=== PATIENT | male | born 1980 | race Caucasian/White ===

== ENCOUNTER 2023-06-16 09:17 | Emergency (ER) | payer BC, SELFPAY ==
[2023-06-16 09:22] VITALS: BP 139/110; PULSE 93; RESP 18; TEMP 36.6; O2SAT 98
--- NOTE | 2023-06-16 09:49 | ED.GENADUL_ITS ---
Discharge Plan Disposition Patient Disposition: Home Condition: Stable Discharge Details Clinical Impression: Facial laceration, Elevated blood pressure reading Primary Care Provider: Allan Johnson ED Provider: Dionte Khoury Home Meds and New Rx's Prescriptions: No Action ibuprofen [Advil Liqui-Gel] 200 MG capsule 400 mg PO PRN PRN Discharge Instructions Instructions: Facial Laceration (ED) Additional Instructions: Please follow-up for suture removal in 7 days. You may wish to follow-up with your PCP or express care or return to the emergency department. Your blood pressure was elevated today. I suspect this is secondary to stress related injury but this should be rechecked. Please be sure to follow-up with your primary care physician and discuss this. Return to the ER immediately for any worsening or new concerning symptoms. Referrals: Allan Johnson [Primary Care Provider] - Discharge Data Discharge Date/Time-TO BE ENTERED AT DEPARTURE: 06/16/23 10:55 Medical Decision Making 43-year-old male here with accidental self-inflicted laceration to the right infraorbital face. Wound was anesthetized, cleansed and repaired with without complication. Bacitracin applied. Tetanus prophylaxis was provided. Patient's blood pressure was elevated today. I suspect this is related to stress. He was informed of this and I advised him to follow-up with his PCP. Usual and customary discharge instructions reviewed the patient. HPI General Mode of arrival: ambulatory . Date/Time Provider Initiated Documentation: 06/16/23 09:31 . Information obtained by: patient . HPI Narrative: 43-year-old male here with laceration to his right infraorbital face. 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 This occurred at 830 this morning. Wound has been bleeding. Related Data Home Medications Medication Instructions Recorded Confirmed ibuprofen 200 mg capsule (Advil 400 mg PO PRN PRN 04/06/17 06/16/23 Liqui-Gel) Allergies Allergy/AdvReac Type Severity Reaction Status Date / Time erythromycin base Allergy Unverified 06/16/23 09:25 [Erythromycin Base] General Stated Complaint: Laceration RUSS: 4 Review of Systems Narrative: See see HPI PFSH All Active Problems Elevated blood pressure reading (Acute) Facial laceration (Acute) Social History Smoking/Tobacco Use Status: Former Tobacco Use Smoking risk assessment performed?: Yes Drug use: Never Substance use type: does not use Do you feel safe in your relationship?: Yes Exam HENWY General nose exam: external nose normal and nares normal Face and sinus: sinuses nontender, no crepitus and laceration (3 cm laceration right infraorbital) Eyes Periorbital: periorbital findings normal Pupils: PERRL EOM: EOM intact bilaterally Course Vital Signs Vital signs: Vital Signs Temperature 36.6 C 06/16/23 09:22 Pulse 93 H 06/16/23 09:22 Respiratory Rate 18 06/16/23 09:22 Blood Pressure 139/110 H 06/16/23 09:22 Pulse Oximetry 98 06/16/23 09:22 Temperature 36.6 C 06/16/23 09:22 Temperature Source Skin 06/16/23 09:22 Pulse 93 H 06/16/23 09:22 Respiratory Rate 18 06/16/23 09:22 Respiratory Effort Normal 06/16/23 09:25 Blood Pressure 139/110 H 06/16/23 09:22 Blood Pressure Position Sitting 06/16/23 09:22 Pulse Oximetry 98 06/16/23 09:22 Oxygen Delivery Method Room Air 06/16/23 09:22 Oxygen Flow Rate 0 06/16/23 09:22 Pain Level 4 06/16/23 09:22 Procedures Laceration Laceration 1: Site: face Side (If applicable): right Size (cm): 2.5 Description: linear Depth: simple, single layer Local Anesthetic: Lidocaine 2% and with Epi Pre-repair: wound explored, irrigated extensively and deep structures intact Skin layer closed with: other (prolene) Size (cm): 6-0 Number of sutures: 4 Technique: simple, interrupted
[2023-06-16] MEDS: Lidocaine/Epinephri/Tetracaine Topical Gel 3 ML TP (10:06)
[2023-06-16 10:52] VITALS: BP 146/111; PULSE 77; RESP 16; O2SAT 99
== END 2023-06-16 10:55 | disposition home or self-care (01) ==
PROVIDERS: Emergency Provider Student in an Organized Health Care Education/Training Program; PCP Family Medicine
DX: S01.21XA Laceration without foreign body of nose, initial encounter (principal); R03.0 Elevated blood-pressure reading, without diagnosis of hypertension; Z23 Encounter for immunization; Z87.891 Personal history of nicotine dependence; W22.8XXA Striking against or struck by other objects, initial encounter; Y93.89 Activity, other specified
CPT/HCPCS: 12011; 90471; 99282

== ENCOUNTER 2023-06-23 13:28 | Emergency (ER) | payer BC, SELFPAY ==
[2023-06-23 13:37] VITALS: BP 154/105; PULSE 82; RESP 18; TEMP 37.1; O2SAT 97
--- NOTE | 2023-06-23 13:52 | ED.GENADUL_ITS ---
Discharge Plan Disposition Patient Disposition: Home Discharge Details Clinical Impression: Visit for suture removal Primary Care Provider: Allan Johnson ED Provider: Nino Tracey Home Meds and New Rx's Prescriptions: No Action ibuprofen [Advil Liqui-Gel] 200 MG capsule 400 mg PO PRN PRN Discharge Instructions Additional Instructions: Verbally discharged Discharge Data Discharge Date/Time-TO BE ENTERED AT DEPARTURE: 06/23/23 14:05 Medical Decision Making This dictation utilizes [id number] dictation software and may contain unedited grammatical errors. 43 y/o M presents to ED today with a chief complaint of suture removal request, had 4 sutures placed 7 days ago- took one out at home. Onset and characteristics include well healing wound without symptoms of infection. Patient has relevant history of noncontributory. Family and social history: noncontibutory. Pertinent exam findings / vital signs include well healed laceraiton with 3 sutures visualized. Differential / pathologies of concern include wound infection. Diagnostic studies of: -none. Interventions of: -suture removal. ED Course: 3 sutures removed without complication, verbally discharged. Findings not consistent with wound infection, sepsis, wound dehiscence. Disposition of Visit for suture removal. Assessment/Plan: Counseled on return for signs of infection- redness, fever, drainage. Patient verbalized understanding of the plan and return to ED criteria and engaged in shared decision making. Medical Records Medical records reviewed: Yes I reviewed the patient's medical records. HPI General Date/Time Provider Initiated Documentation: 06/23/23 13:52 . HPI Narrative: 43 year-old male presents to ED today by POV/ambulating with a chief complaint of suture removal request, sutures to R cheek with onset placed at this ED 7 days ago. Quality described as healing well- he removed one suture at home but couldn't get the other 3, no radiation to fever, redness, purulent drainage. Severity is described as 0/10. Palliating factors include nothing specific. Provoking factors include nothing specific. Patient not anticoagulated. Related Data Home Medications Medication Instructions Recorded Confirmed ibuprofen 200 mg capsule (Advil 400 mg PO PRN PRN 04/06/17 06/23/23 Liqui-Gel) Allergies Allergy/AdvReac Type Severity Reaction Status Date / Time erythromycin base Allergy Unverified 06/23/23 13:39 [Erythromycin Base] General Stated Complaint: SutureRem RUSS: 4 Review of Systems All systems reviewed & are unremarkable except as noted in HPI and below PFSH All Active Problems (Updated 06/28/23 @ 07:55 by KORIN Crawford) Visit for suture removal (Acute) Elevated blood pressure reading (Acute) Facial laceration (Acute) Social History Smoking/Tobacco Use Status: Former Tobacco Use Smoking risk assessment performed?: Yes Drug use: Never Substance use type: does not use Housing: house Do you feel safe at home: Yes Do you feel safe in your relationship?: Yes Exam Narrative Exam Narrative: GENERAL APPEARANCE: Well-nourished, non-toxic, awake and alert, atraumatic, no acute distress. SKIN: Warm, pink, dry, intact, well healed R cheek superficial laceration with 3 sutures visible, no erythema/purulent drainage HEAD: Normocephalic, atraumatic, normal hair distribution for gender/age. EYES: Pupils PERRLA, EOMs intact without nystagmus, normal conjunctiva, no exudates on lids/lashes. ENT: Nares patent, no circumoral cyanosis, no facial swelling NECK: Supple, trachea midline, painless cervical ROM. LUNGS/CHEST: Non-labored respirations, normal A/P diameter, symmetrical expans ion, no chest wall deformity HEART (CV/PV): No peripheral edema, no JVD. ABDOMEN: Soft, non-distended, no guarding. MSK: Normal ROM, no swelling/deformity to bilateral UEs or LEs, moving all extremities without weakness, no cyanosis, spine midline without tenderness, normal curvature. NEURO: Mental Status AAOx4 - alert to person, place, time, events No facial droop, no forehead involvement. Motor: No focal weakness - strength 5/5 in bilateral UEs and LEs, proximal and distal, symmetric. Sensory: sensation intact to light touch globally. Gait normal: patient ambulated without ataxia into ED room. PSYCH: euthymic, cooperative, pleasant, appropriate speech Course Vital Signs Vital signs: Vital Signs Temperature 37.1 C 06/23/23 13:37 Pulse 82 06/23/23 13:37 Respiratory Rate 18 06/23/23 13:37 Blood Pressure 154/105 H 06/23/23 13:37 Pulse Oximetry 97 06/23/23 13:37 Temperature 37.1 C 06/23/23 13:37 Temperature Source Temporal Artery Scan 06/23/23 13:37 Pulse 82 06/23/23 13:37 Respiratory Rate 18 06/23/23 13:37 Respiratory Effort Normal, Non-Labored 06/23/23 13:40 Blood Pressure 154/105 H 06/23/23 13:37 Blood Pressure Position Sitting 06/23/23 13:37 Pulse Oximetry 97 06/23/23 13:37 Oxygen Delivery Method Room Air 06/23/23 13:37 Oxygen Flow Rate 0 06/23/23 13:37 PAWSS Have you Been Recently Intoxicated or Drunk Within the Last 30 days?: No Have you Ever Experienced Previous Episodes of Alcohol Withdrawal?: No Have you ever Experienced Withdrawal Seizures?: No Have you ever Experienced Delirium Tremens(DT)s?: No Have you ever undergone Alcohol Rehabilitation Treatment (i.e, inpt ot outpatient treatment programs)?: No Have you ever Experienced Blackouts?: No Have you ever Combined Alcohol with other Downers within the last 90 days?: No Have you ever Combined Alcohol with any other Substance of Abuse during the last 90 days?: No Positive Blood Alcohol level on Presentation? [PCS.BAL]: No Evidence of Increased Autonomic Activity (i.e. HR>120, tremor, sweating, agitation, nausea)?: No Result: 0
== END 2023-06-23 14:05 | disposition home or self-care (01) ==
LOC: ER 13:54
PROVIDERS: Emergency Provider Physician Assistant; PCP Family Medicine
DX: Z48.02 Encounter for removal of sutures (principal)